=== PATIENT | male | born 1980 | race Caucasian/White ===

== ENCOUNTER 2024-03-21 12:38 | Inpatient (IN) | payer BC, SELFPAY ==
[2024-03-21] VITALS (10 sets, daily range): BP systolic 105–132; BP diastolic 74–96; BMI 28.9; BMI 28.2
[2024-03-21 10:30] LABS: % Basophils 0.4 % (0-2); % Eosinophils 0.7 % (0-6); % Immature Granulocytes 0.4 % (0-0.5); % Lymphocytes 30.2 % (20.5-51.1); % Monocytes 7.8 % (1.7-9.3); % Neutrophils 60.5 % (42.2-75.2); Absolute Eosinophils 0.1 10^3/uL (0-0.7); Absolute Lymphocytes 2.6 10^3/uL (1.2-3.4); Absolute Monocytes 0.7 10^3/uL (0.1-0.6); Absolute Neutrophils 5.1 10^3/uL (1.4-6.5); Hematocrit 42.5 % (39.0-52.0); Hemoglobin 14.7 g/dL (13.0-18.0); Mean Corp Hgb Conc. 34.6 g/dL (33.0-37.0); Mean Corpuscular Hgb 30.1 pg (27.0-31.0); Mean Corpuscular Volume 86.9 fL (80.0-94.0); Mean Platelet Volume 10.5 fL (7.4-10.4); Nucleated Red Blood Cells % 0 % (-); Platelet Count 238 10^3/uL (130-400); Red Blood Cell Count 4.89 10^6/uL (4.70-6.10); Red Cell Dist. Width 12.8 % (11.5-14.5); White Blood Cell Count 8.4 10^3/uL (4.8-10.8)
--- NOTE | 2024-03-21 10:52 | ED.GENMED ---
History of Present Illness
<Lela Howard PA-C - Last Filed: 03/22/24 10:25>
General
Chief Complaint: Cardiac Symptoms
Source: patient
Exam Limitations: none
Time Seen by Provider: 03/21/24 10:51
Nursing documentation reviewed up to this point in time: agreed with
History of Present Illness
History of Present Illness:
Patient is a 44-year-old male presenting to the emergency department for evaluation of lightheadedness. Patient states that he has noticed lightheadedness, worse with exertion over the past 6 weeks or so. Patient states symptoms seem to initially
began following a COVID infection around Labor Day. Patient reports feeling lightheaded when walking upstairs and with other exertional activities. He feels as if he is going to 'pass out 'and his legs get weak. Patient denies any syncopal
events. Symptoms seem to resolve after sitting down. Patient denies any associated chest pain or shortness of breath. Patient denies any true dizziness or spinning sensation. Patient denies any fever or chills.
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
Past History
<Lela Howard PA-C - Last Filed: 03/22/24 10:25>
Past History
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
ED Past Surgical History: Cardiac
Social History
Tobacco: Non-smoker
Alcohol: Occasional
Drug: None
Personal:
Living: with family
Employment: Employed
Family History
Family History: Diabetes, CAD and Other (father with alopecia)
Review of Systems
<EVERETT Wilson Last Filed: 03/22/24 10:25>
Review of Systems
Allergies reviewed?: Yes
All Other Systems: ROS reviewed and negative except as documented in HPI and ROS
Phy Exam
<Lela Howard PA-C - Last Filed: 03/22/24 10:25>
Physical Exam
Physical Exam:
Vitals: Patient's vital signs are stable. Afebrile
General: Patient is very well appearing, no acute distress
Skin: Warm and dry, no rashes or lesions
Head: Normocephalic, atraumatic
Eyes: Sclera nonicteric. EOMs intact. No nystagmus.
Throat: Protecting airway
Neck: Normal ROM, no cervical spine tenderness, no meningismus. No JVD
Cardiac: Regular rate, irregular rhythm, no murmurs.
Pulm: Normal respiratory effort, no wheezes, rales, rhonchi heard on exam.
Abdomen: No abdominal tenderness.
Extremities: No evidence of cyanosis or edema. Great distal pulses
Neuro: AAOx3. CN II-XII intact. No focal neurologic deficits. Speech fluid.
Psychiatric: Normal affect.
Course
<Lela Howard PA-C - Last Filed: 03/22/24 10:25>
Orders/Labs/Results
Orders:
Orders
03/21/24 09:08
Electrocardiogram (*1) Urgent
Reason for Study: Vertigo / Dizzy
EKG- Treatment ONCE
03/21/24 Lunch
Regular
At Your Request: Full Participation
Does patient need a safe tray?: No
03/21/24 10:16
Complete Blood Count/With Diff Urgent
Comprehensive Metabolic Panel Urgent
Glycohemoglobin (HgbA1c) Urgent
TSH Urgent
Comment: ADD ON
03/21/24 12:23
Echo 2D MMode Color/Doppler Routine
Reason for Study: New atrial flutter
03/21/24 12:25
Admit/Transfer Patient As Directed
Co-Sign Provider:
Level of Care: Inpatient admission
Assign to:: IVU
Physician / Group: CBC
Diagnosis: Atrial flutter
Reason for Hospitalization: Atrial flutter
Expected length of stay greater than two midnights?: Yes
ELOS- Estimated Length of Stay in days: 3
I certify the patient meets the requirements for IP care: Yes
PRN Pain Medication Management As Directed
May give lesser potent ordered pain med per pt: Yes
preference::
Protocol:: Medication orders for pain may be administered in a
manner that supports deferring to patient preference
when the pt is:
-Requesting an ordered lesser potent pain medication.
Least to most potent pain medications are defined as:
acetaminophen < NSAID < tramadol < opioids (morphine,
oxycodone, hydromorphone).
- Requesting a lesser dose of the same medication IF
ORDERED.
- Requesting a less intrusive route of administration
if both routes are prescribed by the provider (PO <
IV).
03/21/24 12:27
Add On- LAB Routine
Tests Added?: Hgba1c, TSH
03/21/24 12:29
Apixaban [Eliquis] 5 mg .ROUTE .STK-MED ONE
Records Request [Obtain Records] As Directed
Dates of Information to be Released: Available
Type of Information Requested: ECG/Cardiology Results
Other
If Other, list type of info requested: Ablation report, Cardiac surgery (tricuspid valve)
Obtain Records from: [facility]
03/21/24 12:30
Apixaban [Eliquis] 5 mg PO BID
03/21/24 15:41
EKG PRN [ECG as needed] As Directed
ECG as needed for:: Rhythm Change
INT (Intravenous Needle Therapy) As Directed
Intake/ Output As Directed
Frequency: Per unit guidelines
Vital Signs As Directed
Frequency: Per unit guidelines
Weight As Directed
Frequency: Once
Type of Scale: Standing Scale
03/22/24 Breakfast
NPO
Allow oral meds: Yes
Allow clear liquids: No
NPO for procedure after (time): Midnight for RAMON/DCCV
Abnormal Lab Results
03/21/24
10:16
MPV 10.5 H fL
(7.4-10.4)
Absolute Monos (auto) 0.7 H 10^3/uL
(0.1-0.6)
Hemoglobin A1c 5.7 H %
(4.0-5.6)
03/21/24 10:16
03/21/24 10:16
Vital Signs
Initial and Last Documented VS:
Initial Vital Signs
Temp Pulse Resp BP Pulse Ox
98.2 F 62 18 132/92 98
03/21/24 09:12 03/21/24 09:12 03/21/24 09:12 03/21/24 09:12 03/21/24 09:12
Last Documented Vital Signs
Temp Pulse Resp BP Pulse Ox
97.5 F 70 18 118/81 99
03/22/24 07:37 03/22/24 09:00 03/22/24 07:37 03/22/24 07:39 03/22/24 07:37
<Cassie Bucio MD - Last Filed: 03/21/24 12:01>
Orders/Labs/Results
Orders:
Orders
03/21/24 09:08
Electrocardiogram (*1) Urgent
Reason for Study: Vertigo / Dizzy
EKG- Treatment ONCE
03/21/24 Lunch
Regular
At Your Request: Full Participation
Does patient need a safe tray?: No
03/21/24 10:16
Complete Blood Count/With Diff Urgent
Comprehensive Metabolic Panel Urgent
Glycohemoglobin (HgbA1c) Urgent
TSH Urgent
Comment: ADD ON
03/21/24 12:23
Echo 2D MMode Color/Doppler Routine
Reason for Study: New atrial flutter
03/21/24 12:25
Admit/Transfer Patient As Directed
Co-Sign Provider:
Level of Care: Inpatient admission
Assign to:: IVU
Physician / Group: CBC
Diagnosis: Atrial flutter
Reason for Hospitalization: Atrial flutter
Expected length of stay greater than two midnights?: Yes
ELOS- Estimated Length of Stay in days: 3
I certify the patient meets the requirements for IP care: Yes
PRN Pain Medication Management As Directed
May give lesser potent ordered pain med per pt: Yes
preference::
Protocol:: Medication orders for pain may be administered in a
manner that supports deferring to patient preference
when the pt is:
-Requesting an ordered lesser potent pain medication.
Least to most potent pain medications are defined as:
acetaminophen < NSAID < tramadol < opioids (morphine,
oxycodone, hydromorphone).
- Requesting a lesser dose of the same medication IF
ORDERED.
- Requesting a less intrusive route of administration
if both routes are prescribed by the provider (PO <
IV).
03/21/24 12:27
Add On- LAB Routine
Tests Added?: Hgba1c, TSH
03/21/24 12:29
Apixaban [Eliquis] 5 mg .ROUTE .STK-MED ONE
Records Request [Obtain Records] As Directed
Dates of Information to be Released: Available
Type of Information Requested: ECG/Cardiology Results
Other
If Other, list type of info requested: Ablation report, Cardiac surgery (tricuspid valve)
Obtain Records from: [facility]
03/21/24 12:30
Apixaban [Eliquis] 5 mg PO BID
03/21/24 15:41
EKG PRN [ECG as needed] As Directed
ECG as needed for:: Rhythm Change
INT (Intravenous Needle Therapy) As Directed
Intake/ Output As Directed
Frequency: Per unit guidelines
Vital Signs As Directed
Frequency: Per unit guidelines
Weight As Directed
Frequency: Once
Type of Scale: Standing Scale
03/22/24 Breakfast
NPO
Allow oral meds: Yes
Allow clear liquids: No
NPO for procedure after (time): Midnight for RAMON/DCCV
Abnormal Lab Results
03/21/24
10:16
MPV 10.5 H fL
(7.4-10.4)
Absolute Monos (auto) 0.7 H 10^3/uL
(0.1-0.6)
Hemoglobin A1c 5.7 H %
(4.0-5.6)
03/21/24 10:16
03/21/24 10:16
Vital Signs
Initial and Last Documented VS:
Initial Vital Signs
Temp Pulse Resp BP Pulse Ox
98.2 F 62 18 132/92 98
03/21/24 09:12 03/21/24 09:12 03/21/24 09:12 03/21/24 09:12 03/21/24 09:12
Last Documented Vital Signs
Temp Pulse Resp BP Pulse Ox
97.5 F 70 18 118/81 99
03/22/24 07:37 03/22/24 09:00 03/22/24 07:37 03/22/24 07:39 03/22/24 07:37
<Lela Howard PA-C - Last Filed: 03/22/24 10:25>
MDM/Problems Addressed
Differential Diagnosis Includes:
Not limited to: Cardiac arrhythmia, dehydration, viral illness, orthostatic hypotension
MDM/Problems Addressed:
44-year-old male presenting with few months of exertional lightheadedness and dyspnea found to be in atrial flutter on arrival. No chest pain. Patient without known history of atrial flutter or atrial fibrillation. patient vital signs are stable
on arrival to emergency department. Rate is in low 60s. Patient hemodynamically stable. Physical exam as above. Patient is well-appearing, conversational and nontoxic. Heart rate irregular. Lungs clear bilaterally. Unknown exact onset of
atrial flutter. Patient not currently anticoagulated. Patient not cardioversion candidate. Given heart rate in 60s��no indication for pharmacologic rate control. Given patient is symptomatic�did discuss with cardiology, Dr. Cramer, who will
admit to their service. Plan for continued monitoring, ARMON, anticoagulation and likely cardioversion during admission. Patient accepted to architectural project manager service and stable condition. Patient seen with attending physician.
Chronic conditions affecting care:
N/A
Acute Exacerbation and/or Progression of Chronic Illness:
Acute atrial flutter
<Lela Howard PA-C - Last Filed: 03/22/24 10:25>
*Pulse Oximetry
Patient hypoxic: no
*EKG
Interpreted by ED Provider?: Yes
EKG Intrepretation Date: 03/21/24
Interpretation: abnormal
Comparison EKG: changes noted
Heart Rate: 65
Rate: normal
Rhythm: atrial flutter
Cowarts: normal axis
Interval: normal interval
QRS Pattern: normal QRS
Ischemia: no ischemia
*Instrument Lens Grinder Apprentice Interpretation
Rate: normal
Interpretation: abnormal
Heart Rate: 62
Rhythm: atrial flutter
*Critical Care Note
Total Time (30-74mins, 75-104mins- exclusive of procedures): Not Applicable
Data Reviewed
Review of Other/Old Records Reveals: Testing (Cardiac echo 05/27 with normal left ventricular function; EKG 05/29/20 with NSR)
<Lela Howard PA-C - Last Filed: 03/22/24 10:25>
Patient Management
Discussion with other providers: Expressive Art Therapist (Cardiology - Dr. Cramer)
Escalation/DeEscalation of care consider admission/obs:
Admit for further monitoring, RAMON and plan for cardioversion
ED Attending Note
<Lela Howard PA-C - Last Filed: 03/22/24 10:25>
-
Portions of this chart may have been created with voice recognition software.� Occasional wrong word or��sound alike� substitutions may have occurred due to the inherent limitations of voice recognition software.
<Cassie Bucio MD - Last Filed: 03/21/24 12:01>
ED Attending Note
Patient seen and examined by attending physician: Yes
I performed the substantive portion of visit, reviewed & personally made and approve the management plan that is documented in note by myself or YAIR.: Yes
ED Attending Note:
Patient appears well and comfortable. Heart sounds irregular. Lungs are clear. Patient states that he is frequently lightheaded and it is just getting worse. 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
field, he gets short of breath. Patient reports symptoms started shortly after he tested positive for COVID. Patient has no known history of A-fib or a flutter and presents with acute A flutter.
Discharge Plan
Departure
Patient Disposition: Admit
Date of Disposition: 03/21/24
Time of Disposition: 12:30
Presentation/result/management discussed w/ accepting MD/DO: Dr. Cramer
Discharge Problem:
New onset atrial flutter
Interventions
Interventions:
*Risk Screen - Suicide Last Done: 03/21/24 09:12
*General Assessment Last Done: 03/21/24 09:12
*Neglect/Abuse Screening Last Done: 03/21/24 09:12
ED- Fall Risk Assessment Last Done: 03/21/24 11:20
*ED COVID-19 Vaccine History Last Done: 03/21/24 09:12
*Nursing Disposition Last Done: 03/21/24 15:32
ED- Pulmonary Assessment Last Done: 03/21/24 11:20
ED- Cardiac Assessment Last Done: 03/21/24 11:20
Discharge Date and Time
Discharge Date/Time: 03/21/24 15:33
[2024-03-21 10:53] LABS: ALT (SGPT) 36 U/L (0-50); AST (SGOT) 34 U/L (17-59); Albumin 4.7 g/dl (3.5-5.0); Alkaline Phosphatase 68 U/L (38-126); Blood Urea Nitrogen 19 mg/dl (9-20); Calcium 9.8 mg/dl (8.4-10.2); Carbon Dioxide 24 mmol/L (22-30); Chloride 105 mmol/L (98-107); Glucose 90 mg/dl (70-99); Potassium 4.7 mmol/L (3.5-5.1); Sodium 142 mmol/L (135-145); Total Bilirubin 0.9 mg/dl (0.2-1.3); Total Protein 7.3 g/dl (6.3-8.2); eGFR > 60.00
[2024-03-21] MEDS: ELIQUIS 5 MG PO ×2 (12:34→19:49)
--- NOTE | 2024-03-21 12:47 | HPS.HSE ---
Addendum entered and electronically signed by Rashel Cramer MD 03/21/24 17:14:
I saw and examined the patient.
The NETWORK DEVELOPER's note was reviewed and I agree with the note.
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 He was found to be in AF.
I spoke with congenital heart disease doc at [facility] and agree with RAMON DCCV and Eliquis.
- RAMON DCCV tomorrow
Original Note:
Family Physician
-
Family Physician: Qasim Curtis
Chief Complaint
-
light-headedness with stairs
History of Present Illness
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 He has been feeling light-headed with stairs over the past
month or two. His watch has reported AFIB at times. In the ER, he is in no distress, but EKG and telemetry reveal atrial flutter.
Medical History
Past Medical History
Past Medical History: Reports Arrhythmia and Other (Kenan's anomaly, s/p TV repair)
Past Surgical History: Reports Cardiac
Social History
Tobacco: Non-smoker
Alcohol: Occasional
Personal:
Living: With Family
Family History
Family History: Other (GF had heart condition, but details unknown)
Allergies / Home Medications
Allergies reflects when Allergies were last updated in [facility].
Home Medications with original date entered in [facility]
Allergy/Medication List:
Allergies: NKDA
Medications: none
Review of Systems
-
History Source: Patient
A 12 point ROS was completed and negative except as noted: Yes
Constitutional: Reports Other (light-headed with stairs)
Physical Exam
Vital Signs
Vital Signs
Temp Pulse Resp BP Pulse Ox
98.2 F 56 17 105/86 98
03/21/24 09:12 03/21/24 12:15 03/21/24 12:15 03/21/24 12:00 03/21/24 12:15
Physical Exam
General: Well Developed, Well Nourished and No Apparent Distress
HEENT: NormoCephalic and Anicteric
Respiratory: Clear and Non Labored Respirations
Cardiac: Irregular Rhythm
Skin: Warm and Dry
Neuro: AO x 3
Psych: Calm
Laboratory Results
-
03/21/24 10:16
03/21/24 10:16
Laboratory Results
Total Bilirubin 0.9 mg/dl (0.2-1.3) 03/21/24 10:16
AST 34 U/L (17-59) 03/21/24 10:16
ALT 36 U/L (0-50) 03/21/24 10:16
Alkaline Phosphatase 68 U/L (38-126) 03/21/24 10:16
Troponin I Cancelled 03/21/24 10:12
Data Reviewed
-
Medical Tests (Nuc Med, Echo, EKG etc): Image Personally Visualized and interpreted (EKG Atrial flutter) and Report Reviewed by me (Echo 05/29/20: Enlarged right ventricular size with low normal systolic function. At least moderately dilated right
atrium. S/P tricuspid valve repair with moderate-severe eccentric tricuspid regurgitation. Mild pulmonic regurgitation. No pericardial effusion. Normal LV size and function.)
Lab Data: Labs Reviewed by me
Impression/Plan
-
IMPRESSION/PLAN:
Atrial Flutter: type and onset unknown
-[id number] score is 0
-RAMON/CV in AM- discussed with patient, unless converts to SR on own
-HR is 50's-60's, no need for AV flaco agent
-since likely for RAMON/CV, will plan for Eliquis 5 mg PO BID
-echo
-TSH
-per chart hx ablation, but not sure which type
Ebstein's Anomaly:
-s/p surgery 2018 at [facility]
-we have a call out his care team there
[2024-03-21 13:51] LABS: Glycohemoglobin (HgbA1c) 5.7 % (4.0-5.6)
--- NOTE | 2024-03-21 14:15 | EDRN ---
Pt fed boxed lunch w/ diet ting tian at this time.
--- NOTE | 2024-03-21 14:39 | EDRN ---
Echocardiogram tech in room w/pt to perform Echocardiogram at stretcher side at this time.
--- NOTE | 2024-03-21 14:55 | EDRN ---
Paperwork request from [facility] filled out at this time and shipping support clerk is working on getting the information.
[2024-03-21 16:14] LABS: TSH 2.16 uIU/ml (0.47-4.68)
--- NOTE | 2024-03-21 16:27 | PTCARENOTE ---
Patient admitted from ED with new onset of AF. Medicated with eliquis in the ED, plan for RAMON/CV in the AM. Presently remains in AF HR in the 110's. Oriented to the room and plan of care, ordering dinner, call bautista in reach.
--- NOTE | 2024-03-21 17:10 | CM ---
spoke to pt in room, he is prev indep, lives with his in a 2 story home with no steps to enter. he denies any dc planning needs or dme's. plan is for dc to home when medically stable.
--- NOTE | 2024-03-21 17:11 | CM ---
[facility] jacinto at [facility]- his copay is $40- he can use the copay card for $10/month. card placed in [facility] red dc folder
--- NOTE | 2024-03-21 23:52 | PTCARENOTE ---
Pt received at change of shift. VSS, Afib on tele with HR 70s-90s when at rest and up to 120s when ambulating. Does not endorse SOB or dizziness. Instructed to limit activity due to HR and pt verbalizes understanding. NPO at midnight for
RAMON/cardioversion in AM. Can make needs known. Call bautista within reach.
[2024-03-22 03:02] VITALS: BP 107/73
[2024-03-22 07:39] VITALS: BP 118/81
[2024-03-22] MEDS: ELIQUIS 5 MG PO (08:23)
--- NOTE | 2024-03-22 10:26 | W.PN.UPDATE ---
Update Note
Progress Note Update
Records received from [facility]. Summarized as below.
Mr Kyle had 2 remote episodes of syncope and heart failure prior to surgery.
Dr. Refugio Puckett, 07/10/2017:
Complete repair Ebstein anomaly
Tricuspid valve repair with [employer] 28 mm flexible annuloplasty ring
Cryoablation cavotricuspid isthmus
Suture closure PFO
Right reduction atrial plasty
Transthoracic echocardiogram, 12/17/2023:
Previous surgical repair of Ebstein's anomaly with 28 mm [employer]bo[employer] annuloplasty and patch augmentation of anterior leaflet along with right reduction atrial plasty and suture PFO closure.
Severe tricuspid valve regurgitation (multiple jets). 11 mm defect in the anterior leaflet. Tricuspid valve diastolic mean Doppler gradient 3 mmHg (HR 65 bpm).
Severely enlarged right ventricular chamber size with mild�moderately reduced systolic function
Estimated right ventricular systolic pressure 40 mmHg (right atrial pressure 15 mmHg) and the present of severe tricuspid valve regurgitation
Sigmoid ventricular septum with basal septal prominence, 60 mm
Abnormal ventricular septal motion without regional wall motion abnormality
Mild mitral valve regurgitation (2 small jets)
Compared to 09/30/2022 [id number] comparison shows no significant change.
[2024-03-22 11:21] VITALS: BP 114/85
--- NOTE | 2024-03-22 13:05 | CARDSERVLU ---
Echocardiogram with [facility] completed after protocol screening completed. Allergies verified.
Patent IV site: ___Rt FA_
IV site flushed with 0.9% NaCl pre and post administration.
Diluted bolus method utilized to enhance visualization of ventricular nieves.
Total volume given: ___3.5_ mL
Patient tolerated all procedures well without complications.
--- NOTE | 2024-03-22 13:50 | W.DS.TRANS ---
DC Summary - Electrical Integrator
-
Discharge Instructions:
Discharge Diagnosis/Procedures Atrial flutter
RAMON & Cardioversion 03/22/2024
Diet No restrictions
Activity As tolerated
Driving Restrictions No driving for 24 hours
Bathing Restrictions None
Instructions:
Stand-Alone Forms:
Changes to Home Medications: Yes
Discharge Medications:
DC Medications w/original date entered in [facility]
apixaban 5 mg tablet (Eliquis) 5 mg PO BID #60 tabs 03/21/24
diltiazem HCl 120 mg capsule,extended release 24 hr 120 mg PO DAILY #30 caps 03/22/24
Home Medication Changes
No medications were discontinued.
Both medications are new.
Pending Results: No
--- NOTE | 2024-03-22 13:50 | W.PN.CD ---
Today's Communication / Plan
-
s/p DCCV
Dilt 120 mg daily
Uninterrupted Eliquis 5 mg bid for 30 days
F/u with [facility]
Impression / Plan
-
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 He was found to be in A flutter.
A flutter
- Eliquis 5 mg bid
- Dilt 120 mg daily
He will follow up with [facility]
Physical Exam
Vital Signs/Labs
Vital Signs
Temp Pulse Resp BP Pulse Ox
98.2 F 70 18 118/81 98
03/22/24 11:20 03/22/24 09:00 03/22/24 11:20 03/22/24 07:39 03/22/24 11:20
03/21/24 03/22/24 03/23/24
06:59 06:59 06:59
Actual Weight 219 lb 9.286 oz
03/21/24 10:16
03/21/24 10:16
TSH 2.16 uIU/ml (0.47-4.68) 03/21/24 10:16
LAB Results
03/21/24
10:12
Troponin I Cancelled
Physical Exam
Constitutional: No acute distress
EENT: Anicteric
Cardiovascular: Rhythm/rate is irregular
Respiratory: Respiratory effort normal and Lungs clear to auscul.
GI: Soft
Neuro/Psych: AO x 3
Data Reviewed
-
Date of Service: March 22, 2024
EKG: Tracing Personally Visualized and interpreted (a flutter then SR)
Echo: Tracing Personally Visualized and interpreted
Labs: Labs Reviewed by me
[2024-03-22 13:51] VITALS: BP 114/84
[2024-03-22 14:00] VITALS: BP 113/88
[2024-03-22 14:30] VITALS: BP 118/93
--- NOTE | 2024-03-22 14:36 | PTCARENOTE ---
Rec'd Pt [id number], S/P RAMON/CV. He is A,A+Ox3, offers no complaints, vss. He remains in SR.
[2024-03-22] MEDS: AFLURIA (36 mos+) 2024-2025 FORMULA 0.5 ML IM (15:10)
== END 2024-03-22 15:45 | disposition home or self-care (01) | DRG 308 ==
LOC: IVU 12:38
PROVIDERS: ADMITTING PHYSICIAN Internal Medicine Cardiovascular Disease; EMERGENCY PHYSICIAN Emergency Medicine; FAMILY PHYSICIAN Family Medicine
PROC: 5A2204Z Restoration of Cardiac Rhythm, Single (ICD-10-PCS; 2024-03-22)
PROC: B24BZZ4 Ultrasonography of Heart with Aorta, Transesophageal (ICD-10-PCS; 2024-03-22)
DX: I48.92 Unspecified atrial flutter (principal); Q22.5 Ebstein's anomaly; I48.91 Unspecified atrial fibrillation
CPT/HCPCS: 80053; 83036; 84443; 85025; 90686; 92960; 93005; 93306; 93312; 93320; 93325; 99285; G0008; Q9950

== ENCOUNTER 2024-12-18 12:03 | Emergency (ER) | payer BC, SELFPAY ==
[2024-12-18 12:05] VITALS: BP 127/84
--- NOTE | 2024-12-18 13:16 | ED.GENMED ---
History of Present Illness
General
Chief Complaint: Musculo-Skeletal Complaint
Source: patient
Time Seen by Provider: 12/18/24 13:03
History of Present Illness
History of Present Illness:
44-year-old male with past medical history of pericarditis presenting to the emergency department for evaluation after he was trying to climb over a gate when he excellently hit the gate causing him to fall forward onto his right knee, now pain
directly over the right patella. Difficulty ambulating secondary to the pain. No other injuries were sustained. Patient denies any previous history of injury or surgery the affected knee
Past History
Past History
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
ED Past Surgical History: Cardiac
Social History
Tobacco: Non-smoker
Alcohol: Occasional
Drug: None
Personal:
Living: with family
Employment: Employed
Family History
Family History: Diabetes, CAD and Other (father with alopecia)
Review of Systems
Review of Systems
All Other Systems: ROS reviewed and negative except as documented in HPI and ROS
Phy Exam
Physical Exam
Physical Exam:
GENERAL: Alert , in no apparent distress
EYE: conjunctiva clear
Head: Normocephalic atraumatic
NECK: Supple,
ENT: mmm.
LUNGS: no acute respiratory distress
NEUROLOGICAL: Alert and oriented
SKIN: Warm and dry, skin intact.
MUSCULOSKELETAL: Right lower extremity: Soft tissue swelling and effusion directly over the patella with tenderness directly over this area. Limited range of motion secondary to the pain. Remainder of extremity is otherwise warm and well-perfused
and neurovascularly intact.
PSYCH: Normal and appropriate interaction.
Scores
Heart Failure Risk
Heart Failure Risk Score: Not Applicable
Heart Score for Chest Pain Patients
STEMI patient?: Not applicable
Withdrawal Assessment of Alcohol
Withdrawal Assessment Completed?: Not applicable
Course
Orders/Labs/Results
Orders:
Orders
12/18/24 12:04
Knee, Right 4 or More Views [CR Knee- Right 4 Or More View*] Urgent
Comment:
Reason For Exam: right knee pain. fell and landed on knee
12/18/24 13:10
Crutches-Treatment ONCE
Knee Immobilizer Right-Treatme ONCE
12/18/24 13:16
Ibuprofen [Motrin] 600 mg PO NOW STA
Vital Signs
Initial and Last Documented VS:
Initial Vital Signs
Temp Pulse Resp BP Pulse Ox
97.9 F 68 16 127/84 99
12/18/24 12:05 12/18/24 12:05 12/18/24 12:05 12/18/24 12:05 12/18/24 12:05
Last Documented Vital Signs
Temp Pulse Resp BP Pulse Ox
97.9 F 68 16 127/84 99
12/18/24 12:05 12/18/24 12:05 12/18/24 12:05 12/18/24 12:05 12/18/24 13:17
MDM/Problems Addressed
Differential Diagnosis Includes:
Contusion
Traumatic effusion
Fracture
Ligamentous injury
Tendon rupture
MDM/Problems Addressed:
44-year-old male presenting to the emergency department for evaluation following right knee pain/injury after an accidental fall. X-ray was ordered from triage which shows a nondisplaced right patella fracture. Patient will be placed in a knee
immobilizer, crutches for partial weightbearing as tolerated. NSAIDs/Tylenol as needed for pain. Outpatient orthopedics follow-up information provided. Patient otherwise stable for discharge and aware of return precautions.
*Radiology
Radiology exam reviewed: preliminary read by ED provider (Nondisplaced patella fracture)
*Pulse Oximetry
SaO2: 99
Oxygen Mode of Delivery: Room air
Patient hypoxic: no
*Critical Care Note
Total Time (30-74mins, 75-104mins- exclusive of procedures): Not Applicable
ED Attending Note
-
Portions of this chart may have been created with voice recognition software.� Occasional wrong word or��sound alike� substitutions may have occurred due to the inherent limitations of voice recognition software.
Discharge Plan
Departure
Patient Disposition: Home (Routine Discharge)
Date of Disposition: 12/18/24
Time of Disposition: 13:16
Patient with high blood pressure during this ER visit?: No
Discharge Problem:
Closed fracture of right patella
Instructions: Patella Fracture ED
Prescriptions:
No Action
Eliquis 5 mg Tablet
5 mg PO BID Qty: 60 1RF
diltiazem HCl 120 mg capsule,extended release 24hr
120 mg PO DAILY Qty: 30 0RF
Referrals:
Maximo Kelley MD [Active, Orthopedics]
Discharge Date and Time
Print Language: CYPRIOT
[2024-12-18] MEDS: MOTRIN 600 MG PO (13:19)
== END 2024-12-18 14:56 | disposition home or self-care (01) ==
LOC: EMR 12:03
PROVIDERS: EMERGENCY PHYSICIAN Emergency Medicine; FAMILY PHYSICIAN Family Medicine
DX: S82.041A Displaced comminuted fracture of right patella, initial encounter for closed fracture (principal); W19.XXXA Unspecified fall, initial encounter; Z82.49 Family history of ischemic heart disease and other diseases of the circulatory system; Z83.3 Family history of diabetes mellitus; Z86.79 Personal history of other diseases of the circulatory system
CPT/HCPCS: 99283; 73564